=== PATIENT | female | born 2000 | race African-American/Black ===

== ENCOUNTER 2020-08-03 17:12 | Inpatient (IN) ==
[2020-08-03] MEDS ORDERED: MEPERIDINE 50 MG/1 ML VIAL IV PRN (17:35)
[2020-08-03] MEDS ORDERED: ONDANSETRON 4 MG/2 ML VIAL IV PRN (17:35)
[2020-08-03] MEDS ORDERED: LACTATED RINGERS 500 ML IV PRN (17:35)
[2020-08-03] MEDS ORDERED: DINOPROSTONE VAG GEL 10 MG SYRINGE VAG ONE (17:37)
[2020-08-03 18:00] LABS: Basophils % 0.3 % (0.0-0.8); Eosinophils # 0.3 10*3/uL (0.0-0.87); Eosinophils % 5.3 % (0.00-10.9); Hematocrit 32.9 VOL% (35.7-47.0); Hemoglobin 10.6 GM/DL (12.0-16.0); Immature Granulocytes % 0.3 %; Immature Granulocytes Absolute 0.02 #; Lymphocytes # 1.4 10*3/uL (1.4-4.0); Lymphocytes % 21.9 % (21.3-54.2); Mean Corpuscular HGB Conc 32.2 GM/DL (32-36); Mean Corpuscular Volume 99.1 FL (87-102); Mean Platelet Volume 11.9 FL (9.6-12.0); Neutrophils % 64.2 % (38.7-73.9); Platelet Count 168 T/CUMM (130-400); Red Blood Count 3.32 MC/CUMM (3.8-5.5); Red Cell Distribution Width 14.4 % (9.3-17.3); White Blood Count 6.3 T/CUMM (4-12)
[2020-08-03] MEDS ORDERED: hydrALAZINE 20 MG/1 ML VIAL IV ONE (18:14)
[2020-08-03 18:36] LABS: Alanine Aminotransferase 18 U/L (13-56); Albumin 2.8 G/DL (3.4-5.0); Alkaline Phosphatase 152 U/L (45-117); Aspartate Amino Transferase 23 U/L (0-37); Bilirubin,Total < 0.39 MG/DL (0.2-1.0); Blood Urea Nitrogen 6 MG/DL (7-18); Calcium 8.6 MG/DL (8.5-10.1); Estimated Glom Filtration Rate 161 ML/MIN; Glucose 105 MG/DL (74-106); Osmolality,Calculated 272.7 MOS/KG (273-304); Total Protein 7.3 G/DL (6.4-8.3)
[2020-08-03 19:22] LABS: HIV Antigen/Antibody Result Nonreactive (Nonreactive); Hepatitis B Surface Ag Quant < 0.10 Index; Hepatitis B Surface Ag Result Negative (Negative)
[2020-08-03] MEDS: BUTORPHANOL 2 MG/ML VIAL IV PRN (20:09)
[2020-08-03] MEDS: LABETALOL 100 MG TABLET PO SCH (22:09)
[2020-08-04] MEDS ORDERED: OXYTOCIN/LR 20 UNIT/1,000 ML BAG IV SCH (02:00)
[2020-08-04] MEDS ORDERED: ePHEDrine 50 MG/ML VIAL IV PRN (02:06)
[2020-08-04] MEDS ORDERED: diphenhydrAMINE 50 MG/1 ML VIAL IV PRN ×2 (02:06)
[2020-08-04] MEDS ORDERED: ONDANSETRON 4 MG/2 ML VIAL IV ONE (02:06)
[2020-08-04] MEDS ORDERED: hydrOXYzine HCL 25 MG/1 ML VIAL IM PRN (02:06)
[2020-08-04] MEDS ORDERED: CITRIC ACID/SODIUM CITRATE 30 ML UDCUP PO ONE (02:06)
[2020-08-04] MEDS ORDERED: LACTATED RINGERS 1,000 ML IV ONE (02:06)
[2020-08-04] MEDS ORDERED: FAMOTIDINE 20 MG/2 ML VIAL IV ONE (02:06)
[2020-08-04] MEDS ORDERED: NALOXONE 0.4 MG/ML VIAL IV PRN (02:06)
[2020-08-04] MEDS ORDERED: PROMETHAZINE 25 MG/1 ML VIAL IM ONE (02:06)
[2020-08-04] MEDS: BUTORPHANOL 2 MG/ML VIAL IV PRN (02:08)
[2020-08-04] MEDS ORDERED: fentaNYL 2 MCG/ROPIV 0.2% EPID 100 ML EPIDURAL SCH (02:30)
[2020-08-04] MEDS ORDERED: LACTATED RINGERS 1,000 ML IV SCH (02:30)
[2020-08-04] MEDS ORDERED: TRANEXAMIC ACID 1,000 MG/10 ML VIAL ONE (04:05)
[2020-08-04] MEDS ORDERED: miSOPROStoL 200 MCG TABLET ONE (04:05)
[2020-08-04] MEDS ORDERED: OXYTOCIN/LR 20 UNIT/1,000 ML BAG IV ONE (04:05)
[2020-08-04] MEDS ORDERED: CARBOPROST TROMETHAMINE 250 MCG/ML AMP IM ONE (04:06)
[2020-08-04] MEDS ORDERED: METHYLERGONOVINE 0.2 MG/1 ML AMP ONE (04:06)
[2020-08-04 04:59] LABS: Apearance,Urine CLEAR (Clear); Bacteria,Urine Occasional /HPF (Few); Bilirubin,Urine Negative (Negative); Blood, Urine Negative (Negative); Glucose,Urine (UA) Negative (Negative); Hyaline Casts,Urine 1 /LPF (0-3); Ketones,Urine Negative (Negative); Mucus,Urine Occasional /LPF (Occasional); Nitrite,Urine Negative (Negative); Protein,Urine Negative; Urine Color Yellow (Yellow); Urine Specific Gravity 1.019 (1.001-1.035); Urine Urobilinogen < 2.0 EU/DL (0.2-1.0); WBC,Urine <1 /HPF (0-6)
[2020-08-04 07:40] LABS: Cord Arterial Blood HCO3 22.4 MMOL/L
[2020-08-04 07:51] LABS: Cord Venous Blood HCO3 22.6 MMOL/L; Cord Venous Blood PCO2 51.7 MMHG; Cord Venous Blood PO2 25.5
[2020-08-04] MEDS: LABETALOL 100 MG TABLET PO SCH (09:25)
[2020-08-04] MEDS ORDERED: BENZOCAINE 20%/MENTHOL 0.5% SPRAY 56 GM CAN TOP PRN (10:16)
[2020-08-04] MEDS ORDERED: DIPH/TET/ACEL PERT BOOSTER VACCINE 0.5 ML VIAL IM ONE (10:16)
[2020-08-04] MEDS ORDERED: HYDROCORTISONE 2.5% RECTAL CREAM 30 GM TUBE TOP PRN (10:16)
[2020-08-04] MEDS ORDERED: ACETAMINOPHEN 325 MG TABLET PO PRN (10:16)
[2020-08-04] MEDS ORDERED: oxyCODONE/ACETAMINOPHEN 5-325 MG TABLET PO PRN ×2 (10:16)
[2020-08-04] MEDS ORDERED: WITCH HAZEL PADS 100/JAR TOP PRN (10:16)
[2020-08-04] MEDS ORDERED: BISACODYL 10 MG SUPP RECTAL PRN (10:16)
[2020-08-04] MEDS ORDERED: LANOLIN 50% CREAM 0.3 OZ TUBE TOP PRN (10:16)
[2020-08-04] MEDS: IBUPROFEN 800 MG TABLET PO PRN ×2 (12:00→18:24)
[2020-08-04] MEDS: DOCUSATE SODIUM 100 MG CAPSULE PO SCH (21:18)
[2020-08-05] MEDS: IBUPROFEN 800 MG TABLET PO PRN ×2 (00:20→10:22)
[2020-08-05 06:48] LABS: Basophils % 0.4 % (0.0-0.8); Eosinophils # 0.2 10*3/uL (0.0-0.87); Eosinophils % 2.4 % (0.00-10.9); Hematocrit 32.9 VOL% (35.7-47.0); Hemoglobin 10.4 GM/DL (12.0-16.0); Immature Granulocytes % 0.5 %; Immature Granulocytes Absolute 0.05 #; Lymphocytes # 2.1 10*3/uL (1.4-4.0); Lymphocytes % 21.4 % (21.3-54.2); Mean Corpuscular HGB Conc 31.6 GM/DL (32-36); Mean Corpuscular Volume 99.1 FL (87-102); Mean Platelet Volume 12.9 FL (9.6-12.0); Monocytes % 7.3 % (1.7-12.7); Platelet Count 146 T/CUMM (130-400); Red Blood Count 3.32 MC/CUMM (3.8-5.5); Red Cell Distribution Width 14.6 % (9.3-17.3); White Blood Count 9.6 T/CUMM (4-12)
[2020-08-05] MEDS: DOCUSATE SODIUM 100 MG CAPSULE PO SCH (07:29)
[2020-08-05 12:13] VITALS: BP 137/86
== END 2020-08-05 15:45 | disposition home or self-care (01) | DRG 560 ==
LOC: N.LDOUT 17:12 → N.LD 17:21 → N.OB 08-04 09:56
PROVIDERS: ADMIT Obstetrics & Gynecology; ATTEND Obstetrics & Gynecology